=== PATIENT | female | born 1995 | race African-American/Black ===

== ENCOUNTER 2022-07-03 18:23 | Outpatient (CLI) | payer OTHER, SELFPAY | END 2022-07-03 18:24 | disposition home or self-care (01) | PROVIDERS: PCP Emergency Medicine; Visit Provider Emergency Medicine | DX: R73.03 Prediabetes (principal); R42 Dizziness and giddiness; F41.9 Anxiety disorder, unspecified; Z13.1 Encounter for screening for diabetes mellitus; Z13.6 Encounter for screening for cardiovascular disorders | CPT/HCPCS: 80048; 80061; 80076 ==

== ENCOUNTER 2022-07-08 11:16 | Outpatient (CLI) | payer SELFPAY | END 2022-07-08 11:17 | disposition home or self-care (01) | LOC: LKVREF 11:18 | PROVIDERS: PCP Emergency Medicine; Visit Provider Emergency Medicine | DX: R73.03 Prediabetes (principal); R42 Dizziness and giddiness; E66.9 Obesity, unspecified; Z68.42 Body mass index [BMI] 45.0-49.9, adult | CPT/HCPCS: 84443 ==

== ENCOUNTER 2023-06-10 13:51 | Outpatient (CLI) | payer OTHER, SELFPAY ==
[2023-06-11 00:07] LABS: Chlamydia DNA Amplified* NOT DETECTED (No Detected); GC DNA Amplified* NOT DETECTED (No Detected)
== END 2023-06-10 13:52 | disposition home or self-care (01) ==
PROVIDERS: PCP Emergency Medicine; Visit Provider Registered Nurse
DX: Z11.3 Encounter for screening for infections with a predominantly sexual mode of transmission (principal)
CPT/HCPCS: 87491; 87591

== ENCOUNTER 2023-07-06 18:17 | Outpatient (CLI) | payer OTHER, SELFPAY | END 2023-07-06 18:18 | disposition home or self-care (01) | PROVIDERS: PCP Emergency Medicine; Referring Provider Emergency Medicine; Visit Provider Registered Nurse | DX: Z11.4 Encounter for screening for human immunodeficiency virus [HIV] (principal); Z11.3 Encounter for screening for infections with a predominantly sexual mode of transmission | CPT/HCPCS: 86592; 86703; 86803; 87340 ==

== ENCOUNTER 2024-12-05 16:28 | Outpatient (CLI) | payer OTHER, SELFPAY | END 2024-12-05 16:29 | disposition home or self-care (01) | LOC: NFLDREF 12-06 03:15 | PROVIDERS: PCP Emergency Medicine; Referring Provider Emergency Medicine; Visit Provider Emergency Medicine | DX: E78.1 Pure hyperglyceridemia (principal); R73.03 Prediabetes; E28.2 Polycystic ovarian syndrome; R68.89 Other general symptoms and signs; Z13.6 Encounter for screening for cardiovascular disorders; Z13.1 Encounter for screening for diabetes mellitus | CPT/HCPCS: 80053; 80061; 84443 ==